=== PATIENT | female | born 1950 ===

== ENCOUNTER → 2023-12-10 13:01 | Outpatient (REF) | payer MEDICARE, OTHER, SELFPAY | LOC: HWRAD 13:01 | PROVIDERS: ATTENDING PHYSICIAN Family Medicine | DX: R59.0 Localized enlarged lymph nodes (principal) | CPT/HCPCS: 76536 ==

== ENCOUNTER → 2023-12-24 13:29 | Outpatient (REF) | payer MEDICARE, OTHER, SELFPAY ==
[2023-12-24 13:45] VITALS: BP 142/83; BP_SYST 77
== END ==
LOC: RADI 13:29
PROVIDERS: ATTENDING PHYSICIAN Physician Assistant
DX: R22.1 Localized swelling, mass and lump, neck (principal)
CPT/HCPCS: 88172; 88173; 42400; 76942

== ENCOUNTER → 2024-05-18 17:48 | Outpatient (REF) | payer MEDICARE, OTHER, SELFPAY | LOC: WDC 17:48 | PROVIDERS: ATTENDING PHYSICIAN Family Medicine | DX: Z12.31 Encounter for screening mammogram for malignant neoplasm of breast (principal) | CPT/HCPCS: 77063; 77067 ==

== ENCOUNTER → 2025-03-08 09:18 | Outpatient (REF) | payer MEDICARE, OTHER, SELFPAY | LOC: RAD 09:18 | PROVIDERS: ATTENDING PHYSICIAN Family Medicine | DX: M79.644 Pain in right finger(s) (principal); T14.90XA Injury, unspecified, initial encounter | CPT/HCPCS: 73130; 73140 ==